=== PATIENT | female | born 1960 | race Caucasian/White ===

== ENCOUNTER 2020-09-13 09:14 | Emergency (ER) | payer OTHER, SELFPAY ==
--- NOTE | ~2020-09-13 | XR_ITS ---
XR finger 2nd RT min 2V 09/13/2020 10:34 Indication: Dog bite Procedure: 3 views of the right second finger Comparison: No prior studies for comparison. Findings: Mild polyarticular osteoarthritis. There is an old fracture dorsal osteophyte base of the d istal phalanx with sclerotic margins. Mild soft tissue swelling. No acute fractures identified. Impression: 1: No acute fracture or traumatic malalignment. Reviewed, dictated and finalized at location A. Impression: 1: No acute fracture or traumatic malalignment.
[2020-09-13 09:43] VITALS: BP 138/75; PULSE 70; RESP 18; TEMP 36.8; O2SAT 96
--- NOTE | 2020-09-13 10:23 | ED.WOUNDLAC ---
HPI - Wound/Laceration General Chief Complaint: Wound/Laceration Stated Complaint: laceration Time Seen by Provider: 09/13/20 09:22 Source: patient Mode of arrival: ambulatory Limitations: no limitations History of Present Illness HPI narrative: This is a 60-year-old female that presents the emergency department for dog bite sustained just prior to arrival. Reports she was playing with her dog and her dog accidentally bit her finger. Reports bleeding and pain to the area. She is unsure of her last tetanus vaccine. Her dog is up-to-date on its vaccinations. Denies decreased range of motion or numbness. Related Data Allergies Allergy/AdvReac Type Severity Reaction Status Date / Time No Known Allergies Allergy Verified 09/13/20 09:48 Review of Systems Review of Systems: CONSTITUTIONAL: Denies fever SKIN: Reports laceration MUSCULOSKELETAL: Denies joint pain, or myalgia. NEUROLOGIC: Denies numbness All systems reviewed & are unremarkable except as noted in HPI and below PMFSH Past Medical History Medical History (Updated 09/13/20 @ 10:55 by Vanita Harrison PA-C) No active medical problems Social History Social History (Updated 09/13/20 @ 10:25 by Vanita Harrison PA-C) Smoking status: Never smoker Exam Narrative: GENERAL: Well-appearing, well-nourished, and in no acute distress. HEAD: Normocephalic, atraumatic. EYES: EOMI. EXTREMITIES: Normal range of motion. No edema or obvious deformity. Right 2nd finger proximal phalanx palmar aspect with 1.5cm irregular laceration into subcutaneous tissue SKIN: Warm, dry, no rash. NEURO: No focal deficits. Alert and oriented x3. PSYCH: Normal mood and affect Course Vital Signs Vital signs: Vital Signs Temperature 98.2 F 09/13/20 09:43 Pulse Rate 70 09/13/20 09:43 Respiratory Rate 18 09/13/20 09:43 Blood Pressure 138/75 09/13/20 09:43 Pulse Oximetry 96 09/13/20 09:43 Temperature 98.2 F 09/13/20 09:43 Pulse Rate 70 09/13/20 09:43 Respiratory Rate 18 09/13/20 09:43 Blood Pressure 138/75 09/13/20 09:43 Pulse Oximetry 96 09/13/20 09:43 Procedures Laceration Laceration 1: Date: 09/13/20 Time: 10:53 Site: hand Side (If applicable): right Size (cm): 1.5 Description: irregular Depth: simple, single layer Pre-repair: wound explored and irrigated extensively ====== Skin Level ====== ====== Subcutaneous Layer ====== ====== Muscle Layer ====== ====== Tendon Layer ====== Dressing: Wound was thoroughly irrigated and bandaged with antibiotic ointment, Telfa, Kerlix and Coban MDM - Wound/Laceration MDM Narrative Medical decision making narrative: Patient presents the emergency department for right second finger dog bite sustained just prior to arrival. The dog is up-to-date on vaccinations. Patient was updated on her tetanus vaccination. Wound was thoroughly irrigated. Because it it is on the hand and more of a puncture wound I will let it heal by secondary intention. I did thoroughly irrigate the wound and bandaged it. Bleeding was controlled. She was educated on wound care. Will be started on oral antibiotics. She is to follow-up with her primary care doctor. She was given warnings to return to the ER Imaging Data Radiologist's impression: ITS Impressions Finger X-Ray 09/13/20 10:37 Impression: 1: No acute fracture or traumatic malalignment. Critical Care Time Critical Care Time Critical Care Time: No Discharge Plan Discharge Clinical Impression: Dog bite Qualifiers: Encounter type: initial encounter Qualified Code(s): W54.0XXA - Bitten by dog, initial encounter Patient Disposition: Home, Self-Care Condition: Stable Instructions: Antibiotic Form, Animal Bite (ED) Additional Instructions: Return to the emergency department if you experience fever, redness or swelling of your wound, abnormal drainage from y
== END 2020-09-13 11:41 | disposition home or self-care (01) ==
PROVIDERS: Emergency Provider Emergency Medicine; PCP Nurse Practitioner Adult Health
DX: S61.250A Open bite of right index finger without damage to nail, initial encounter (principal); W54.0XXA Bitten by dog, initial encounter
CPT/HCPCS: 73140; 99283

== ENCOUNTER 2022-12-05 08:33 | Outpatient (CLI) | payer OTHER, SELFPAY ==
[2022-12-05 20:15] LABS: Hematocrit 47.1 % (37.0-47.0); Hemoglobin 14.5 g/dL (12.0-15.0); Mean Corpuscular HGB Conc 30.8 g/dl (32-36); Mean Corpuscular Hemoglobin 29.3 pg (26-34); Mean Corpuscular Volume 95.2 fl (80-100); Mean Platelet Volume 9.5 fl (7.4-10.4); Platelet Count Result 318 k/mm3 (150-375); Red Blood Count 4.95 M/mm3 (4.2-5.4); Red Cell Distribution Width 13.8 % (11.5-14.5); White Blood Count 6.7 K/mm3 (4.5-10.0)
[2022-12-05 20:24] LABS: Alanine Aminotransferase 22 U/L (6-35); Albumin Level 4.5 g/dL (3.5-5.1); Alkaline Phosphatase 62 U/L (38-126); Anion Gap 6 mmol/L (8-16); Aspartate Amino Transferase 46 U/L (14-36); Bilirubin,Total 0.6 mg/dL (0.2-1.3); Blood Urea Nitrogen 14 mg/dL (7-17); Calcium 9.6 mg/dL (8.4-10.2); Carbon Dioxide 27 mmol/L (22-30); Chloride 105 mmol/L (98-107); Cholesterol 234 mg/dL (0-200); Estimated Glomerular Filt Rate > 60; Glucose 83 mg/dL (65-110); HDL Direct 70 mg/dL; Potassium 4.2 mmol/L (3.4-5.0); Sodium 138 mmol/L (137-145); Triglycerides 89 mg/dL (<150)
[2022-12-05 20:35] LABS: LDL Cholesterol Direct 119 mg/dL
== END 2022-12-05 08:34 | disposition home or self-care (01) ==
LOC: ANHBWCLAB 08:34
PROVIDERS: PCP Nurse Practitioner Adult Health; Visit Provider Nurse Practitioner Adult Health
DX: Z13.9 Encounter for screening, unspecified (principal)
CPT/HCPCS: 36415; 80053; 80061; 84443; 85027

== ENCOUNTER 2023-05-30 13:00 | Outpatient (CLI) | payer OTHER, SELFPAY ==
--- NOTE | ~2023-05-30 | MM_ITS ---
EXAMINATION: MM screening lauren BI w nick HISTORY: Screening mammogram TECHNIQUE: Craniocaudal and mediolateral oblique 3-D tomosynthesis images were obtained and synthetic 2-D images were generated. CAD analysis was submitted and interpreted. COMPARISON: No prior mammogram is available for comparison at this institution. BREAST PARENCHYMAL COMPOSITION: The breasts are heterogeneously dense, which may obscure small masses . FINDINGS: Bilateral benign appearing circumscribed probable intramammary lymph nodes are noted in the posterior upper outer quadrants. There is no evidence of suspicious mass, calcification, or architec tural distortion to suggest malignancy in either breast. IMPRESSION: 1. No mammographic evidence of malignancy. 2. Recommend routine screening mammography in one year. BI-RADS Category 2: Benign finding(s). Reviewed, dictated and finalized at location A.
== END 2023-05-30 13:01 ==
LOC: MICIMG 13:01
PROVIDERS: PCP Nurse Practitioner Adult Health; Visit Provider Nurse Practitioner Adult Health
DX: Z12.31 Encounter for screening mammogram for malignant neoplasm of breast (principal)
CPT/HCPCS: 77063; 77067

== ENCOUNTER 2023-11-16 08:17 | Outpatient (CLI) | payer OTHER, SELFPAY ==
[2023-11-16 19:53] LABS: Hematocrit 44.3 % (37.0-47.0); Hemoglobin 14.1 g/dL (12.0-15.0); Mean Corpuscular HGB Conc 31.8 g/dl (32-36); Mean Corpuscular Hemoglobin 30.1 pg (26-34); Mean Corpuscular Volume 94.7 fl (80-100); Mean Platelet Volume 9.8 fl (7.4-10.4); Platelet Count Result 323 k/mm3 (150-375); Red Blood Count 4.68 M/mm3 (4.2-5.4); Red Cell Distribution Width 13.8 % (11.5-14.5)
[2023-11-16 20:12] LABS: Alanine Aminotransferase 18 U/L (6-35); Albumin Level 4.6 g/dL (3.5-5.1); Alkaline Phosphatase 62 U/L (38-126); Anion Gap 7 mmol/L (4-12); Aspartate Amino Transferase 64 U/L (14-36); Bilirubin,Total 0.8 mg/dL (0.2-1.3); Blood Urea Nitrogen 17 mg/dL (7-17); Calcium 9.6 mg/dL (8.4-10.2); Carbon Dioxide 29 mmol/L (22-30); Chloride 100 mmol/L (98-107); Cholesterol 205 mg/dL (0-200); Estimated Glomerular Filt Rate > 60; Glucose 74 mg/dL (65-110); HDL Direct 75 mg/dL; Sodium 136 mmol/L (137-145); Triglycerides 52 mg/dL (<150)
[2023-11-16 20:23] LABS: LDL Cholesterol Direct 88 mg/dL
== END 2023-11-16 08:18 | disposition home or self-care (01) ==
LOC: ANHBWCLAB 08:18
PROVIDERS: PCP Nurse Practitioner Adult Health; Visit Provider Nurse Practitioner Adult Health
DX: Z13.9 Encounter for screening, unspecified (principal)
CPT/HCPCS: 36415; 80053; 80061; 84443; 85027